=== PATIENT | male | born 1995 ===

== ENCOUNTER → 2018-08-20 18:42 | Outpatient (REF) | payer OTHER, SELFPAY ==
[2018-08-20 19:17] LABS: Add Manual Diff / Slide Review NO; Basophils Percent Auto 2.1 % (0-2); Eosinophils Percent Auto 11.4 % (2-4); Hematocrit 46.5 % (41-53); Hemoglobin 15.8 g/dL (13.5-17.5); Lymphocytes Percent Auto 23.8 % (25-40); Mean Corpuscular HGB Conc 33.9 % (30-36); Mean Corpuscular Volume 85.4 fL (80-100); Monocytes Percent Auto 6.8 % (3-14); Neutrophils Absolute Auto 3100 /uL (3000-5900); Neutrophils Percent Auto 55.9 % (50-75); Platelet Count 293 X10^3/uL (150-400); Red Blood Cell Count 5.44 X10^6/uL (4.5-5.9); Red Cell Distribution Width 13.2 % (11.6-14.8); White Blood Cell Count 5.5 X10^3/uL (4.5-11.0)
[2018-08-20 19:57] LABS: Erythrocyte Sedimentation Rate 1 MM/HR (0-15)
[2018-08-21 19:12] LABS: Alanine Aminotransferase 28 IU/L (21-72); Albumin 4.8 g/dL (3.5-5.0); Albumin Globulin Ratio 1.5 (1.0-2.8); Alkaline Phosphatase 50 U/L (38-126); Aspartate Aminotransferase 25 IU/L (17-59); BUN Creatinine Ratio 8.2 (6-22); Bilirubin Total 1.1 mg/dL (0.2-1.3); Blood Urea Nitrogen 9 mg/dL (9-20); Carbon Dioxide 27 mmol/L (22-32); Chloride 101 mmol/L (98-107); Estimated Glomerular Filt Rate > 60.0 mL/min (>60); Globulin 3.3 g/dL (1.7-4.1); Glucose 93 mg/dL (70-100); HEMOLYSIS < 15 (0-50); Potassium 4.6 mmol/L (3.4-5.1); Sodium 141 mmol/L (137-145); Total Protein 8.1 g/dL (6.3-8.2)
[2018-08-21 19:49] LABS: Ferritin 45.9 ng/mL (17.9-464)
== END ==
LOC: LAB 18:42
PROVIDERS: Visit Provider Family Medicine
DX: D64.9 Anemia, unspecified (principal)
CPT/HCPCS: 36415; 80053; 82728; 84443; 85025; 85651